=== PATIENT | female | born 1945 | race Caucasian/White ===

== ENCOUNTER 2020-06-27 22:14 | Emergency (ER) | payer MEDICARE ==
--- NOTE | 2020-06-27 22:56 | EDM.PDOC ---
ED HPI GENERAL MEDICAL PROBLEM - General Chief Complaint: Lower Extremity Injury/Pain Stated Complaint: MEDICAL VIA [facility] Time Seen by Provider: 06/27/20 22:25 Source of Information: Reports: Patient, EMS, Family History Limitations: Reports: No Limitations - History of Present Illness INITIAL COMMENTS - FREE TEXT/NARRATIVE: 74-year-old female who fell and hurt her left hip about 1 hour ago. She has a history of a ramus fracture, the symptoms feel similar. She fell 1 hour ago and was unable to get up. No other injury. Onset: Sudden Duration: Hour(s): (1 hour ago) Location: Reports: Lower Extremity, Left Associated Symptoms: Reports: No Other Symptoms Left Hip Pain Score (Numeric/FACES): 7 - Related Data Allergies Allergy/AdvReac Type Severity Reaction Status Date / Time lactulose Allergy Wheezing Verified 06/27/20 23:02 oxacillin Allergy Other Verified 06/27/20 23:02 prednisone Allergy Dizziness Verified 06/27/20 23:02 shellfish derived Allergy Vomiting Verified 06/27/20 22:23 Tetracyclines Allergy Other Verified 06/27/20 23:02 Home Meds: Home Meds Aspirin [Halfprin] 81 mg PO DAILY 06/27/20 [History] Cholecalciferol (Vitamin D3) [Vitamin D3] 25 mcg PO DAILY 06/27/20 [History] Cyanocobalamin (Vitamin B-12) [B-12] 2,500 mcg SL DAILY 06/27/20 [History] Cyanocobalamin (Vitamin B-12) [Cyanocobalamin Injection] 1,000 mcg IM ASDIRECTED 06/27/20 [History] Levothyroxine 75 mcg PO DAILY 06/27/20 [History] Losartan [Cozaar] 100 mg PO DAILY 06/27/20 [History] Warfarin [Coumadin] 2.5 mg PO DAILY 06/27/20 [History] atorvaSTATin [Lipitor] 20 mg PO BEDTIME 06/27/20 [History] Past Medical History Cardiovascular History: Reports: Heart Valve Replacement Social & Family History - Family History Family Medical History: Noncontributory - Tobacco Use Smoking Status *Q: Never Smoker - Caffeine Use Caffeine Use: Reports: None - Recreational Drug Use Recreational Drug Use: No Review of Systems - Review of Systems Review Of Systems: See Below Constitutional: Denies: Fever Respiratory: Denies: Shortness of Breath Cardiovascular: Denies: Chest Pain Musculoskeletal: Reports: Other (Left hip pain) Skin: Denies: Bruising ED EXAM, GENERAL - Physical Exam Exam: See Below Exam Limited By: No Limitations General Appearance: Alert, No Apparent Distress, Other (Fairly comfortable if lying still) Head: Atraumatic Neck: Supple, Non-Tender Respiratory/Chest: Lungs Clear Cardiovascular: Regular Rate, Rhythm, Other (Artificial click heard) GI/Abdominal: Soft, Non-Tender Extremities: Other (Fairly significant left hip discomfort with any external palpation or passive range of motion, no significant deformity or shortening) Neurological: Alert, Oriented Psychiatric: Normal Affect, Normal Mood Skin Exam: Warm, Dry Course - Vital Signs Last Recorded V/S: Last Vital Signs Temp 97.8 F 06/27/20 23:18 Pulse 52 L 06/27/20 23:18 Resp 16 06/27/20 23:18 BP 137/58 L 06/27/20 23:18 Pulse Ox 90 L 06/27/20 23:18 - Orders/Labs/Meds Orders: Active Orders 24 hr Category Date Time Status Insert Taylor Catheter [Insert Urinary Catheter] [OM.PC] Care 06/27/20 23:59 O rdered Q24H Hip Min 2V or 3V w Pelvis Lt [CR] Stat Exams 06/27/20 22:42 Taken - Re-Assessments/Exams Free Text/Narrative Re-Assessment/Exam: 06/27/20 22:56 An x-ray of the left hip was obtained. 06/27/20 23:47 X-ray shows an intertrochanteric fracture of the left hip, slightly displaced. Our hospital is full so transfer was arranged to [facility]. Departure - Departure Time of Disposition: 00:36 Disposition: DC/Tfer to Other 70 Clinical Impression: Intertrochanteric fracture of left hip Qualifiers: Encounter type: initial encounter Fracture type: closed Fracture alignment: displaced Qualified Code(s): S72.142A - Displaced intertrochanteric fracture of left femur, initial encounter for closed fracture - Discharge Information Referrals: PCP,None [Primary Care Provider] - Forms: ED Department Discharge Care Plan Goals: Patient will be transferred to [facility] in [place] for orthopedic evaluation in preparation for left hip repair due to an intertrochanteric fracture. Sepsis Event Note (ED) - Focused Exam Vital Signs: Vital Signs Temp Pulse Resp BP Pulse Ox 06/27/20 23:18 97.8 F 52 L 16 137/58 L 90 L - My Orders Last 24 Hours: My Active Orders 06/27/20 22:42 Hip Min 2V or 3V w Pelvis Lt [CR] Stat 06/27/20 23:59 Insert Taylor Catheter [Insert Urinary Catheter] [OM.PC] Q24H - Assessment/Plan Last 24 Hours: My Active Orders 06/27/20 22:42 Hip Min 2V or 3V w Pelvis Lt [CR] Stat 06/27/20 23:59 Insert Taylor Catheter [Insert Urinary Catheter] [OM.PC] Q24H
--- NOTE | 2020-06-28 08:57 | CR ---
Hip Min 2V or 3V w Pelvis Lt CLINICAL HISTORY: Fall FINDINGS: There is a comminuted intertrochanteric fracture left femur. There is abduction of the proximal aspect. There is deformity of the left pubic rami from previous healed fracture. Degenerative changes in the spine and left SI joint IMPRESSION: Comminuted intertrochanteric fracture left femur
== END 2020-06-28 00:38 | disposition other institution (70) ==
LOC: JP.ED 22:14
DX: S72.142A Displaced intertrochanteric fracture of left femur, initial encounter for closed fracture (principal); Z91.011 Allergy to milk products; Z88.1 Allergy status to other antibiotic agents; Z88.8 Allergy status to other drugs, medicaments and biological substances; Z91.013 Allergy to seafood; Z79.82 Long term (current) use of aspirin; Z79.01 Long term (current) use of anticoagulants; Z79.899 Other long term (current) drug therapy; W19.XXXA Unspecified fall, initial encounter
CPT/HCPCS: 51702; 73502-26-LT; 73502-LT; 99285-25